=== PATIENT | female | born 1990 | race Caucasian/White ===

== ENCOUNTER 2025-05-06 02:13 | Inpatient (IN) | payer BC, SELFPAY ==
[2025-05-05 22:01] VITALS: BP 125/84
[2025-05-05 22:23] LABS: HCG, Urine Qualitative Screen Negative
[2025-05-05 22:24] LABS: Urine Character Clear (Clear)
[2025-05-05 22:32] LABS: Hematocrit 36.0 % (37.0-47.0); Hemoglobin 11.4 g/dL (12.0-16.0); Mean Corp Hgb Conc. 31.7 g/dL (33.0-37.0); Mean Corpuscular Volume 85.3 fL (81.0-99.0); Nucleated Red Blood Cells % 0 %; Platelet Count 402 10^3/uL (130-400); Red Cell Dist. Width 13.7 % (11.5-14.5)
[2025-05-05 22:39] LABS: ALT (SGPT) 32 U/L (0-35); AST (SGOT) 29 U/L (14-36); Albumin 5.3 g/dl (3.5-5.0); Alkaline Phosphatase 86 U/L (38-126); Blood Urea Nitrogen 42 mg/dl (7-17); Calcium 10.5 mg/dl (8.4-10.2); Carbon Dioxide 23 mmol/L (22-30); Chloride 105 mmol/L (98-107); Glucose 155 mg/dl (70-99); Lipase 89 U/L (23-300); Potassium 5.0 mmol/L (3.5-5.1); Sodium 136 mmol/L (135-145); Total Protein 9.0 g/dl (6.3-8.2); eGFR 24.39
[2025-05-05 22:47] LABS: Urine Red Blood Cell 0-2 /HPF (0-2); Urine Squamous Cell >30 /LPF (Few); Urine White Cell 0-2 /HPF (0-5)
[2025-05-06] VITALS (9 sets, daily range): BP systolic 119–143; BP diastolic 65–87; BMI 17.9; BMI 18.2
--- NOTE | 2025-05-06 00:39 | ED.GENMED ---
History of Present Illness
General
Chief Complaint: Abdominal Symptoms
Source: patient
Exam Limitations: none
Time Seen by Provider: 05/06/25 00:20
Nursing documentation reviewed up to this point in time: agreed with
History of Present Illness
History of Present Illness:
Patient with history of IBS, presents ED secondary to persistent diarrhea over the past 2 months along with nausea sensation. Patient has been evaluated by her GI physician at [facility]. Patient has had imaging studies as well as
stool studies, without identification of etiology behind her symptoms. Patient reports approximately 6 to 8 pound weight loss over the past 1 week with lightheaded sensation. Denies fever or chills. Denies abdominal pain. Denies vomiting.
Denies bloody bowel movements. Denies recent change in medications or diet. Denies recent travel.
Past History
Past History
ED Past Medical History: Cancer (Neuroblastoma, Osteosarcoma.), HTN, Renal failure (Remote history of renal insufficiency secondary to methotrexate and other chemotherapy) and Other (Neuroblastoma with seizure); Negative IDDM
ED Past Surgical History: Orthopedic and Other (Neuroblastoma removal, septoplasty)
Social History
Tobacco: Non-smoker
Alcohol: None
Drug: None
Personal: Single
Living: with family
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
Family History
Family History: Hypertension
Review of Systems
Review of Systems
Allergies reviewed?: Yes
All Other Systems: ROS reviewed and negative except as documented in HPI and ROS
Constitutional: Reports no symptoms
Respiratory: Reports no symptoms
Cardiac: Reports no symptoms
ABD/GI: Reports nausea and diarrhea
Musculoskeletal: Reports no symptoms
Skin: Reports no symptoms
Neurological: Reports dizzy and weakness
Phy Exam
Physical Exam
Physical Exam:
Physical Exam
General: mild distress, uncomfortable appearing. thin. afebrile
Head: nc/at. eomi
Neck: supple. no meningeal signs.
Heart: s1/s2 regular rate and rhythm, no murmur
Lungs: no acute respiratory distress. clear bilaterally
Abdomen: normal bowel sounds. not tender. no distention
Neuro: alert and oriented x 3. no focal neurological deficits
Skin: no rash
Psychiatric: well kept. interactive and cooperative
Extremities: no edema. no calf tenderness.
Course
Orders/Labs/Results
Orders:
Orders
05/05/25 22:06
IV Insert/Care/Rem.- Treatment PRN
Test Result ONCE
05/05/25 22:14
Complete Blood Count/With Diff Urgent
Comprehensive Metabolic Panel Urgent
Free T4 Urgent
HCG, Urine Qualitative Screen Urgent
Date Specimen was Collected: 05/05/25
Time Specimen was Collected: 22:06
Lipase Urgent
TSH Reflex To Free T4 Urgent
Comment: ADDED
Urinalysis Reflex To Culture Urgent
Date Specimen was Collected: 05/05/25
Time Specimen was Collected: 22:06
Urine Microscopic Reflex Cult Urgent
05/06/25 00:30
Add On- LAB Urgent
Tests Added?: tsh reflex t4
05/06/25 00:42
0.9% Sodium Chloride 1000 ml [Nss] 1,000 ml IV BOLUS
05/06/25 00:59
Ondansetron Injectable [Zofran] 4 mg IV NOW STA
05/06/25 01:00
Ondansetron Injectable [Zofran] 4 mg IV NOW STA
Abnormal Lab Results
05/05/25
22:14
WBC 12.5 H 10^3/uL
(4.8-10.8)
Hgb 11.4 L g/dL
(12.0-16.0)
Hct 36.0 L %
(37.0-47.0)
MCHC 31.7 L g/dL
(33.0-37.0)
Plt Count 402 H 10^3/uL
(130-400)
Absolute Neuts (auto) 7.2 H 10^3/uL
(1.4-6.5)
Absolute Lymphs (auto) 4.1 H 10^3/uL
(1.2-3.4)
Absolute Monos (auto) 0.7 H 10^3/uL
(0.1-0.6)
BUN 42 H mg/dl
(7-17)
Creatinine 2.6 H mg/dL
(0.6-1.0)
Glucose 155 H mg/dl
(70-99)
Calcium 10.5 H mg/dl
(8.4-10.2)
Total Protein 9.0 H g/dl
(6.3-8.2)
Albumin 5.3 H g/dl
(3.5-5.0)
TSH (Reflex) 0.16 L uIU/ml
(0.47-4.68)
Ur Occult Blood Reflex 4+ A
(Negative)
Urine Bacteria (Reflex) Few A
(Negative)
Urine Albumin (Reflex) 2+ A
(Neg - Trace)
05/05/25 22:14
05/05/25 22:14
Vital Signs
Initial and Last Documented VS:
Initial Vital Signs
Temp Pulse Resp BP Pulse Ox
97.7 F 90 19 125/84 100
05/05/25 22:01 05/05/25 22:01 05/05/25 22:01 05/05/25 22:01 05/05/25 22:01
Last Documented Vital Signs
Temp Pulse Resp BP Pulse Ox
97.7 F 85 17 127/73 98
05/05/25 22:01 05/06/25 02:30 05/06/25 02:30 05/06/25 02:00 05/06/25 00:42
MDM/Problems Addressed
MDM/Problems Addressed:
Blood work significant for acute renal failure, likely secondary to poor oral intake and ongoing GI loss via diarrhea.
Will contact patient's primary GI physician at the [facility] for potential transfer.
Discussed with hospitalist at [facility] and discussed all findings. As there are no inpatient beds available currently, recommends admitting patient at [facility] for IV hydration. If there is no clinical
improvement, consider reaching out to [facility] again for potential transfer. Patient agrees with treatment plan.
*Pulse Oximetry
SaO2: 98
Oxygen Mode of Delivery: Room air
Patient hypoxic: no
*Critical Care Note
Total Time (30-74mins, 75-104mins- exclusive of procedures): Not Applicable
ED Attending Note
-
Portions of this chart may have been created with voice recognition software.� Occasional wrong word or��sound alike� substitutions may have occurred due to the inherent limitations of voice recognition software.
Discharge Plan
Departure
Patient Disposition: Admit
Date of Disposition: 05/06/25
Time of Disposition: 00:59
Admit to: Med/Surg
Presentation/result/management discussed w/ accepting MD/DO: Hospitalist
Discharge Problem:
Diarrhea, Acute renal failure (ARF)
Interventions
Interventions:
*Risk Screen - Suicide Last Done: 05/05/25 22:01
*General Assessment Last Done: 05/05/25 22:01
*Neglect/Abuse Screening Last Done: 05/05/25 22:01
GT-Ortwem-Jhpzzcznte Assessment Last Done: 05/06/25 00:39
[2025-05-06] MEDS: NSS 1000 IV (00:42)
[2025-05-06] MEDS: ZOFRAN 4 MG IV (01:00)
--- NOTE | 2025-05-06 02:25 | DOWNTIME ---
There was a [employer] Downtime on 05/06/2025 from 0100 to 05/06/2025 at 0220. Downtime documentation of patient's care, including medication administrations, has been reconciled in the electronic record per guidelines. Refer to the
patient's paper chart under the miscellaneous tab to see printed paper medication records and downtime forms.
--- NOTE | 2025-05-06 02:28 | HPS.HSE ---
Family Physician
-
Family Physician: PHYSICIAN PRIVATE
Chief Complaint
-
Diarrhea
History of Present Illness
This is a 34-year-old female was past medical history significant for neuroblastoma, ultrasound,, chronic renal insufficiency presenting to the emergency department for persistent diarrhea.
Patient reports she has been having diarrhea for the last 2 months with associated nausea. She has been followed [facility] physicians and has had imaging and stool studies without identification of the etiology of her symptoms.
She usually has 2 liquid stools a day however over the last 2 days she has had up to 10 liquid stools starting overnight until today. Anytime she tries to eat she immediately developed diarrhea. She has nausea but no vomiting. Patient stated
that she has had about 6 to 8 pound weight loss over the last 1 week and feels lightheaded. She denies abdominal. She has no bloody bowel movements. She denies any abdominal bloating. She has no recent travels or sick contacts. She denies any
fevers. She has no known sick contacts.
She had a colonoscopy July last year which shows no inflammatory bowel disease, no evidence of celiac sprue and no other luminal findings.
Patient has MRI recently which showed stable adenomas in the liver but no other findings.
Emergency department she was afebrile, blood pressure was 130/80 with a pulse of 80 and satting 98% on room air. Had a white count of 12.5, hemoglobin 11.1 platelet 402. Electrolytes were normal. Creatinine was elevated at 2.6 with a BUN of 42.
LFTs were unremarkable. Albumin was elevated at 5.3.
Medical History
Past Medical History
Past Medical History: Reports Cancer (Neuroblastoma, osteosarcoma), HTN and Renal Failure (History of renal failure in the setting of methotrexate and chemo.)
Past Surgical History: Reports Orthopedic and Other (Neuroblastoma, septoplasty)
Social History
Tobacco: Non-smoker
Alcohol: None
Drug: None
Personal:
Living: With Family
Family History
Family History: Not pertinent
Allergies / Home Medications
Allergies reflects when Allergies were last updated in [employer].
Home Medications with original date entered in [employer]
Allergy/Medication List:
Allergies
Allergy/AdvReac Type Severity Reaction Status Date / Time
furosemide (From Lasix) Allergy vomiting, Verified 06/28/19 04:33
diarrhea
sulfamethoxazole (From Allergy internal Verified 06/28/19 04:33
Bactrim) itch
trimethoprim (From Bactrim) Allergy internal Verified 06/28/19 04:33
itch
dogs Allergy Pharmacy Uncoded 06/28/19 04:33
to Review
Home Medications
trazodone 50 mg tablet 50 mg PO HS 04/14/15
bupropion HCl 300 mg 24 hr tablet, extended release 150 mg PO HS 02/19/19
fenofibrate 160 mg tablet 160 mg PO HS 02/19/19
levothyroxine 88 mcg tablet 88 mcg PO HS 02/19/19
Jardiance 25 mg tablet, 10 mg ONCE p.o. daily
Lexapro 20 mg tablet, 20 mg p.o. daily
Metoprolol succinate 25mg tablet, 25 mg p.o. daily
Review of Systems
-
Constitutional: Reports No Symptoms
EENT: Reports No Symptoms
Respiratory: Reports No Symptoms
Cardiac: Reports No Symptoms
Abdomen/GI: Reports Nausea and Diarrhea
: Reports No Symptoms
Musculoskeletal: Reports No Symptoms
Skin: Reports No Symptoms
Neurological: Reports No Symptoms
Endocrine: Reports No Symptoms
Hematologic/Lymphatic: Reports No Symptoms
Psych: Reports No Symptoms
Physical Exam
Vital Signs
Vital Signs
Temp Pulse Resp BP Pulse Ox
97.7 F 80 16 138/86 98
05/05/25 22:01 05/06/25 00:32 05/06/25 00:32 05/06/25 00:32 05/06/25 00:42
Physical Exam
General: Well Developed, Well Nourished and No Apparent Distress
HEENT: NormoCephalic, Moist mucous membranes and Atraumatic
Respiratory: Clear
Cardiac: S1/S2 and Regular Rhythm; No Murmur or Rub
GI: Soft, Non Tender, Non Distended and Normal Bowel Sounds; No Organomegaly
Rectal: Deferred by Provider
Musculoskeletal: No Clubbing, No Cyanosis and No Edema
Skin: No Rash
Neuro: Nonfocal/grossly intact
Laboratory Results
-
05/05/25 22:14
05/05/25 22:14
Laboratory Results
Total Bilirubin 0.7 mg/dl (0.2-1.3) 05/05/25 22:14
AST 29 U/L (14-36) 05/05/25 22:14
ALT 32 U/L (0-35) 05/05/25 22:14
Alkaline Phosphatase 86 U/L (38-126) 05/05/25 22:14
Lipase 89 U/L (23-300) 05/05/25 22:14
Data Reviewed
-
Lab Data: Labs Reviewed by me
Old Records: Reviewed
Impression/Plan
-
IMPRESSION:
Patient with history of neuroblastoma, meningioma, osteosarcoma, hypertension, hypothyroid, presenting with with worsening of ongoing diarrhea. Patient has been having diarrhea for several weeks with extensive outpatient workup been unrevealing
however over the last 24 hours she has had significant intensification of her diarrhea resulting in up to 10 liquid bowel movements in a day whereas she usually has is about 2. She reports poor tolerance of p.o. due to immediately development of
diarrhea with any p.o. intake. She reports nausea but no vomiting. Abdomen exam was benign. Labs shows MANOLO with a creatinine of 2.6 and a BUN of 42. Electrolytes are stable. Albumin is elevated at 5.3. Urine specific gravity of 1.02. UA is
negative. CBC shows a white count of 12.5 but otherwise unremarkable.
Suspect patient has chronic diarrhea but also has likely acute viral or bacterial diarrhea. Likely viral given no signs of acute febrile illness or toxicity.
PLAN:
MANOLO -creatinine 2.6, baseline is around 1.3. BUN elevated suspect prerenal azotemia, however with granular casts she may have developed ATN.
-Admit to [facility]
- check urine lytes, creatinine
- Continue IV fluids with LR at 125 mL an hour
- avoid nephrotoxins and renal dose medications
- nephrology consultation
Diarrhea
- Stool studies for acute diarrhea
- Lomotil prn
- Advance diet as tolerated
- Hold Jardiance
- Continue metoprolol, Synthroid, Wellbutrin and Lexapro.
- d/w [facility] per ED, treat and observe here unless symptoms worsenes. It appears she has acute diarrhea in addition to her chronic issue.
- DVT prophylaxis with heparin subcu
CODE STATUS full code
- Patient accepted for transfer to [facility] because manager rfid showed the liver she is pending a bed.
[2025-05-06] MEDS: LR 1000 IV ×2 (03:21→10:55)
[2025-05-06 07:01] LABS: Platelet Count 278 10^3/uL (130-400)
[2025-05-06 07:02] LABS: Hematocrit 28.5 % (37.0-47.0); Hemoglobin 9.6 g/dL (12.0-16.0); Mean Corp Hgb Conc. 33.7 g/dL (33.0-37.0); Mean Corpuscular Volume 83.1 fL (81.0-99.0); Red Cell Dist. Width 13.6 % (11.5-14.5)
--- NOTE | 2025-05-06 08:36 | W.PN.HOSP.TC ---
Today's Communication/Plan
-
follow up stool studies if collected
IVF
awaiting AM BMP
renal US
renal consult
1/2 home dose of Wellbutrin in setting of MANOLO
Assessment / Plan
Assessment / Plan
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
diarrhea. She has been having diarrhea over past 2 months with nausea, undergoing work-up at [facility] with acute worsening over past 24 hours resulting in up to 10 liquid bowel movements a day. Labs significant for MANOLO.
PLAN:
MANOLO -creatinine 2.6, baseline is around 1.3. BUN elevated suspect prerenal azotemia, however with granular casts she may have developed ATN.
-Admitted to [facility]
- awaiting urine sodium, creatinine
- Continue IV fluids with LR at 125 mL an hour
- avoid nephrotoxins and renal dose medications
- renal US
- nephrology consultation
- *repeat BMP - I called lab and they stated specimen needed to be recollected
Diarrhea
- Stool studies for acute diarrhea
- Advance diet as tolerated
- Hold Jardiance
- d/w [facility] per ED, treat and observe here unless symptoms worsens. It appears she has acute diarrhea in addition to her chronic issue.
Essential HTN
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
Depression
-COMMUNICATIONS ELECTRICIAN SUPERVISOR Wellbutrin qD and Lexapro qhs as patient takes at home --> *1/2 dose of Wellbutrin in setting of MANOLO
-obtain EKG to monitor QTc
Hypothyroidism
-COMMUNICATIONS ELECTRICIAN SUPERVISOR Synthroid
- DVT prophylaxis with heparin subcu
CODE STATUS full code
Anticipated Discharge: 24 - 48 hours
Subjective/Interval History
-
Date of Service: May 06, 2025
she is feeling better with fluids
no BM yet this morning
no abdominal pain
Objective Data
-
Labs:
Laboratory Results
05/05/25 05/06/25 05/06/25
22:14 06:21 06:41
WBC 12.5 H 8.7
Hgb 11.4 L 9.6 L
Hct 36.0 L 28.5 L
Plt Count 402 H 278 D
Sodium 136 Cancelled Pending
Potassium 5.0 Cancelled Pending
Chloride 105 Cancelled Pending
Carbon Dioxide 23 Cancelled Pending
BUN 42 H Cancelled Pending
Creatinine 2.6 H Cancelled Pending
Glucose 155 H Cancelled Pending
Calcium 10.5 H Cancelled Pending
Total Bilirubin 0.7
AST 29
ALT 32
Alkaline Phosphatase 86
Vital Signs:
Vital Signs
Temp Pulse Resp BP Pulse Ox
98.1 F 85 18 127/73 98
05/06/25 07:00 05/06/25 02:30 05/06/25 07:00 05/06/25 02:00 05/06/25 00:42
Review of Systems
-
History Source: Patient
All other systems: Reviewed and negative
Physical Exam
-
General: No Apparent Distress
HEENT: PERRLA
Respiratory: Clear to Auscultation; Negative Wheezes
Cardiac: Regular Rhythm and S1/S2
GI: Soft and Nontender
Musculoskeletal: No Edema
Skin: Warm and Dry; Negative Rash
Neuro: AO x 3
Psych: Calm
Data Reviewed
-
Diagnostic Radiology: Report Reviewed by me
Labs: Labs Reviewed by me
[2025-05-06] MEDS: WELLBUTRIN XL (24 hour extended release) 150 MG PO (09:54)
--- NOTE | 2025-05-06 10:33 | CM ---
CM met with pt bedside
Pt resides with her spouse in a 4 story townhouse near [facility]
13 steps to enter 1st floor/basement level, then 3 flights to 4th floor bed/bath (13+13+13)
Pt is indep with her ADLs, denies use of DMEs
Pt is on LT disability and has income stream, denies financial insecurities
PCP- Angie Xiong ([facility], [place])
Rx- [facility]
Discharge Disposition- anticipate home, no needs
--- NOTE | 2025-05-06 10:54 | W.CON.NEPH ---
Consultation
-
Date/Time Consultation Requested: May 06, 2025 at 9
Date/Time Consultation Performed: May 06, 2025 at 10 AM
Requesting Provider: Dr. Amaral
Performing Provider: Dr. Jvaed
Reason for Consultation: Acute kidney injury
Medical History
-
Chief Complaint: Acute kidney
History of Present Illness:
34-year-old female was past medical history significant for neuroblastoma, ultrasound,, chronic renal insufficiency presenting to the emergency department for persistent diarrhea.
Patient reports she has been having diarrhea for the last 2 months with associated nausea. She has been followed [facility] physicians and has had imaging and stool studies without identification of the etiology of her symptoms.
She usually has 2 liquid stools a day however over the last 2 days she has had up to 10 liquid stools starting overnight until today.
She had a colonoscopy July last year which shows no inflammatory bowel disease, no evidence of celiac sprue and no other luminal findings.
She has a baseline creatinine of 1.2-1.[address] Zuleta
Renal consult for acute kidney injury with a creatinine of 2.6 and elevated calcium mild 10.5
Past Medical History
neuroblastoma, ultrasound,, chronic renal insufficiency chronic diarrhea hypothyroid
Social History
Tobacco: Non-Smoker
Alcohol: None
Family History
Family History: Not Pertinent
Allergies / Home Medications
Allergy/AdvReac Type Severity Reaction Status Date / Time
furosemide (From Lasix) Allergy vomiting, Verified 06/28/19 04:33
diarrhea
sulfamethoxazole (From Allergy internal Verified 06/28/19 04:33
Bactrim) itch
trimethoprim (From Bactrim) Allergy internal Verified 06/28/19 04:33
itch
dogs Allergy Pharmacy Uncoded 06/28/19 04:33
to Review
�Medication �Instructions �Recorded �Confirmed �Type
fenofibrate 160 mg tablet 160 mg PO HS 02/19/19 05/06/25 History
levothyroxine 88 mcg tablet 88 mcg PO HS 02/19/19 05/06/25 History
bupropion HCl 300 mg 24 hr tablet, 300 mg PO DAILY 05/06/25 05/06/25 History
extended release (Wellbutrin XL)
empagliflozin 25 mg tablet 25 mg PO DAILY 05/06/25 05/06/25 History
(Jardiance)
escitalopram oxalate 20 mg tablet 20 mg PO HS 05/06/25 05/06/25 History
(Lexapro)
estradiol 0.1 mg/24 hr weekly 1 patch transdermal QWEEK 05/06/25 05/06/25 History
transdermal patch
metoprolol succinate 25 mg 25 mg PO HS 05/06/25 05/06/25 History
tablet,extended release 24 hr
(Toprol XL)
Review of Systems
-
Diarrhea weakness
All other systems: Negative unless noted
Physical Exam
Vital Signs
Vital Signs
Temp Pulse Resp BP Pulse Ox
98.1 F 85 19 124/65 99
05/06/25 07:00 05/06/25 07:15 05/06/25 07:15 05/06/25 07:00 05/06/25 07:15
Lab Results
WBC 8.7 10^3/uL (4.8-10.8) 05/06/25 06:21
RBC 3.43 10^6/uL (4.20-5.40) L 05/06/25 06:21
Hgb 9.6 g/dL (12.0-16.0) L 05/06/25 06:21
Hct 28.5 % (37.0-47.0) L 05/06/25 06:21
Plt Count 278 10^3/uL (130-400) D 05/06/25 06:21
eGFR Cancelled 05/06/25 06:21
Albumin 5.3 g/dl (3.5-5.0) H 05/05/25 22:14
Physical Exam
General no acute distress
HEENT no cephalic atraumatic extraocular muscle intact no scleral icterus no JVD neck supple
lungs clear to auscultation bilateral
heart regular S1-S2 positive
abdomen soft nontender positive bowel sounds
extremities no edema pulses present bilateral
Neurologically nonfocal alert and oriented x 3
Skin no lesions no abrasions no petechiae
Psych normal affect no bizarre behavior
Data Reviewed
-
Ultrasound: Image Personally Visualized and interpreted
Assessment/Plan
-
34-year-old female was past medical history significant for neuroblastoma, ultrasound,, chronic renal insufficiency presenting to the emergency department for persistent diarrhea.
Patient reports she has been having diarrhea for the last 2 months with associated nausea. She has been followed [facility] physicians and has had imaging and stool studies without identification of the etiology of her symptoms.
She usually has 2 liquid stools a day however over the last 2 days she has had up to 10 liquid stools starting overnight until today.
She had a colonoscopy July last year which shows no inflammatory bowel disease, no evidence of celiac sprue and no other luminal findings.
She has a baseline creatinine of 1.2-1.[address] Zuleta
Renal consult for acute kidney injury with a creatinine of 2.6 and elevated calcium mild 10.5
Impression.
Acute on chronic kidney disease stage III
Anemia
Acute on chronic diarrhea
Mild hypercalcemia
hematuria= patient does not have menstruation she has ovaries removed
Hypertension stable
Plan.
Continue IV fluids appears to be prerenal
Hypercalcemia secondary to prerenal likely
Check urine indices
Hematuria on urinalysis no red blood cell/2+ albumin= will quantify
Renal ultrasound pending official read no obstructive component per my review.
Awaiting repeat lab
Holding Jardiance
[2025-05-06 11:07] LABS: Blood Urea Nitrogen 35 mg/dl (7-17); Calcium 8.9 mg/dl (8.4-10.2); Carbon Dioxide 21 mmol/L (22-30); Chloride 109 mmol/L (98-107); Estimated Creatinine Clearance 25 ml/min; Glucose 94 mg/dl (70-99); Magnesium 1.8 mg/dl (1.6-2.3); Potassium 4.4 mmol/L (3.5-5.1); Sodium 139 mmol/L (135-145); eGFR 29.80
--- NOTE | 2025-05-06 20:10 | W.PN.UPDATE ---
Update Note
Progress Note Update
patient wanting to leave home, Ox[place], able to make decisions, advised against medical leave. AMA signed and in chart.
== END 2025-05-06 20:17 | disposition left against medical advice (07) | DRG 684 ==
LOC: 3 WEST ACU 02:13
PROVIDERS: Student in an Organized Health Care Education/Training Program; ADMITTING PHYSICIAN Internal Medicine; ATTENDING PHYSICIAN Student in an Organized Health Care Education/Training Program; CONSULT PHYSICIAN Internal Medicine Nephrology; EMERGENCY PHYSICIAN Emergency Medicine
DX: N17.9 Acute kidney failure, unspecified (principal); D63.1 Anemia in chronic kidney disease; N18.30 Chronic kidney disease, stage 3 unspecified; K52.9 Noninfective gastroenteritis and colitis, unspecified; E03.9 Hypothyroidism, unspecified; E83.52 Hypercalcemia; I12.9 Hypertensive chronic kidney disease with stage 1 through stage 4 chronic kidney disease, or unspecified chronic kidney disease; Z79.84 Long term (current) use of oral hypoglycemic drugs; Z79.890 Hormone replacement therapy; Z85.830 Personal history of malignant neoplasm of bone; Z85.858 Personal history of malignant neoplasm of other endocrine glands; Z88.1 Allergy status to other antibiotic agents
CPT/HCPCS: 76770; 80048; 80053; 81003; 81015; 81025; 82550; 82570; 83690; 83735; 84156; 84300; 84439; 84443; 85025; 85027; 87045; 87046; 87324; 87427; 87449; 87798; 89055